=== PATIENT | female | born 1995 | race Caucasian/White ===

== ENCOUNTER 2018-11-15 23:14 | Emergency (ER) | payer OTHER ==
[~2018-11-15] VITALS: Ht 162.6 cm; Wt 61.4 kg
[2018-11-15] MEDS ORDERED: NEXI40CA PO (23:19)
[2018-11-15] MEDS ORDERED: CLINDAMYCIN 900 MG in APPROPRIATE DILUENT 1 EA IV ONE (23:45)
[2018-11-16 00:01] LABS: BASO # 0.1 10^3/uL (0.0-0.2); BASO % 0.4 % (0.0-1.0); EOS # 0.1 10^3/uL (0.0-0.50); EOS % 0.6 % (0.0-3.0); LYMPH # 1.1 10^3/uL (1.5-6.5); LYMPH % 7.9 % (24.0-44.0); MEAN CORPUSCULAR HEMOGLOBIN 28.5 pg (27.0-33.0); MEAN CORPUSCULAR HGB CONC 34.3 g/dl (32.0-36.5); MEAN CORPUSCULAR VOLUME 83.1 fl (80.0-96.0); MONO # 1.2 10^3/uL (0.0-0.8); MONO % 8.6 % (0.0-5.0); NEUTROPHILS # 11.6 10^3/uL (1.8-7.7); NEUTROPHILS % 81.9 % (36.0-66.0); PLATELET COUNT, AUTOMATED 244 10^3/uL (150-450); RED BLOOD COUNT 4.21 10^6/uL (4.00-5.40); WHITE BLOOD COUNT 14.1 10^3/uL (4.0-10.0)
--- NOTE | 2018-11-16 00:43 | REPVR ---
EXAM: US Pelvis Limited, Transabdominal EXAM DATE/TIME: 11/15/2018 12:07 AM CLINICAL HISTORY: 23 years old, female; Pain; Other: Left buttocks; Additional info: ? Left gluteal abscess--pain, redness, swelling TECHNIQUE: Real-time transabdominal pelvic ultrasound with image documentation. Limited exam. COMPARISON: No relevant prior studies available. FINDINGS: Scanning in the left gluteal region demonstrates a large hypoechoic area with scattered bright internal echoes suggesting gas bubbles and internal complexity and likely reflects abscess measuring 5.4 x 4.5 x 5.2 cm. IMPRESSION: Findings consistent with left buttocks subcutaneous abscess measuring approximately 5.4 x 4.5 x 5.2 cm. Electronically signed by: Yonathan Siu On 11/16/2018 00:42:58 AM
[2018-11-16 00:45] LABS: BLOOD UREA NITROGEN 10 MG/DL (7-18); CALCIUM LEVEL 8.7 MG/DL (8.5-10.1); CARBON DIOXIDE LEVEL 23 MEQ/L (21-32); CHLORIDE LEVEL 104 MEQ/L (98-107); CREATININE FOR GFR 0.84 MG/DL (0.55-1.30); GLOMERULAR FILTRATION RATE > 60.0 (>60); GLUCOSE, FASTING 161 MG/DL (70-100); POTASSIUM SERUM 3.5 MEQ/L (3.5-5.1); SODIUM LEVEL 137 MEQ/L (136-145)
[2018-11-16] MEDS ORDERED: LIDOCAINE 2% MDV 20 ML VIAL SC ONE (01:30)
[2018-11-16] MEDS ORDERED: CLEO300C2 PO (02:00)
[2018-11-16] MEDS ORDERED: NORCOTAB PO (02:00)
[2018-11-16 02:06] VITALS: BP 117/69
[2018-11-16] MEDS ORDERED: NORCO, ANEXSIA 5/325MG TABLET (HYDROcodone/ACETAMINOPHEN) PO ONE (02:15)
== END 2018-11-16 02:35 | disposition home or self-care (01) ==
LOC: M ED 23:14
DX: L02.31 Cutaneous abscess of buttock (principal); K21.9 Gastro-esophageal reflux disease without esophagitis; Z88.0 Allergy status to penicillin; Z88.2 Allergy status to sulfonamides; Z88.8 Allergy status to other drugs, medicaments and biological substances

== ENCOUNTER 2018-11-18 19:16 | Inpatient (IN) | payer OTHER ==
[~2018-11-18] VITALS: Ht 162.6 cm; Wt 61.4 kg
[2018-11-18] MEDS: LR 1,000 ML IV SCH (03:15)
[~2018-11-18 19:16] MED LIST: CLEO300C2 PO; NEXI40CA PO; NORCOTAB PO
[2018-11-18] MEDS ORDERED: cefTRIAXone SOD 1 GM in D5W MINI-BAG PLUS 50 ML IV ONE (20:00)
[2018-11-18] MEDS ORDERED: MORPHINE 4 MG/ML 1ML VIAL/SYRINGE (J2270) IV ONE (20:00)
[2018-11-18] MEDS ORDERED: KETOROLAC 30 MG/ML VIAL (J1885) IV ONE (20:00)
[2018-11-18] MEDS ORDERED: NS 1,000 ML IV ONE (20:00)
[2018-11-18] MEDS ORDERED: ISOVUE-370 76% 100ML VIAL (Q9967) As Ordered ONE (20:02)
[2018-11-18 20:05] LABS: BASO # 0.1 10^3/uL (0.0-0.2); BASO % 0.4 % (0.0-1.0); EOS % 0.1 % (0.0-3.0); HEMATOCRIT 36.1 % (36.0-47.0); HEMOGLOBIN 12.2 g/dl (12.0-15.5); LYMPH # 1.4 10^3/uL (1.5-6.5); LYMPH % 9.7 % (24.0-44.0); MEAN CORPUSCULAR HGB CONC 33.8 g/dl (32.0-36.5); MONO # 1.2 10^3/uL (0.0-0.8); MONO % 8.3 % (0.0-5.0); NEUTROPHILS # 11.5 10^3/uL (1.8-7.7); NEUTROPHILS % 80.4 % (36.0-66.0); PLATELET COUNT, AUTOMATED 279 10^3/uL (150-450); RED BLOOD COUNT 4.35 10^6/uL (4.00-5.40); WHITE BLOOD COUNT 14.3 10^3/uL (4.0-10.0)
[2018-11-18 20:23] LABS: ERYTHROCYTE SEDIMENTATION RATE 43 mm/hr (0-20)
--- NOTE | 2018-11-18 20:59 | REP ---
Clinical: Left gluteal abscess. Technique: Axial contrast enhanced images of the pelvis using 100 ml Isovue 370 intravenous contrast material with coronal and sagittal re-formations. Findings: A multiloculated left gluteal abscess with surrounding inflammatory changes to the subcutaneous fat measures approximately 5.2 x 5.8 x 8.7 cm and appears to extend medially through the perineum towards the left side of the vagina and labia (images 60-95). No obvious significant adenopathy appreciated although few mildly prominent left inguinal lymph nodes are identified and measure up to approximately 12 mm. The cervix/uterus and bilateral adnexa appear normal. The bladder is unremarkable. Visualized portions of the small and large bowel including terminal ileum and appendix appear normal. Vasculature without evidence for aneurysm or dissection. The osseous structures are intact and unaffected. Impression: Multiloculated abscess within the left gluteal region extending through the perineum to the left side of the vagina and labia measuring approximately 5.2 x 5.8 x 8.7 cm. Electronically Signed by Geoff Busby MD 11/18/2018 08:50 P
[2018-11-18 21:00] LABS: BLOOD UREA NITROGEN 6 MG/DL (7-18); CALCIUM LEVEL 8.3 MG/DL (8.5-10.1); CARBON DIOXIDE LEVEL 27 MEQ/L (21-32); CHLORIDE LEVEL 102 MEQ/L (98-107); CREATININE FOR GFR 0.88 MG/DL (0.55-1.30); GLOMERULAR FILTRATION RATE > 60.0 (>60); GLUCOSE, FASTING 173 MG/DL (70-100); POTASSIUM SERUM 3.4 MEQ/L (3.5-5.1); SODIUM LEVEL 138 MEQ/L (136-145)
[2018-11-18] MEDS ORDERED: NEXI40CA PO (21:35)
[2018-11-18] MEDS ORDERED: NORC1TAB4 PO (21:35)
[2018-11-18] MEDS ORDERED: PROBCAP14 PO (21:35)
[2018-11-18] MEDS ORDERED: VITMTA PO (21:35)
[2018-11-18] MEDS ORDERED: CLEO300C2 PO (21:35)
[2018-11-18] MEDS ORDERED: VITA200015 PO (21:35)
[2018-11-18] MEDS ORDERED: METOCLOPRAMIDE INJ 10MG/2ML VIAL (J2765) IV PRN (23:45)
[2018-11-18] MEDS ORDERED: MORPHINE 4 MG/ML 1ML VIAL/SYRINGE (J2270) IV PRN ×2 (23:45)
[2018-11-18] MEDS ORDERED: ONDANSETRON 4MG/2ML VIAL (J2405) IV PRN (23:45)
[2018-11-19] VITALS (10 sets, daily range): BP systolic 99–122; BP diastolic 50–69
[2018-11-19] MEDS ORDERED: LIDOCAINE 2% INJ 100 MG/5 ML SDV (FOR ANES.) As Ordered ONE (00:41)
[2018-11-19] MEDS ORDERED: PROPOFOL 200 MG/20 ML VIAL As Ordered ONE ×2 (00:41→01:42)
[2018-11-19] MEDS ORDERED: MIDAZOLAM INJ 2 MG/2 ML VIAL (J2250) As Ordered ONE (00:43)
[2018-11-19] MEDS ORDERED: fentaNYL 100 MCG/2 ML INJECTION (J3010) As Ordered ONE ×2 (00:44→01:38)
[2018-11-19 01:07] LABS: HCG, SERUM QUANTITATIVE < 1.0 MIU/ML
[2018-11-19] MEDS ORDERED: BUPIVACAINE HCL 0.5% 30 ML VIAL As Ordered ONE (01:13)
[2018-11-19] MEDS ORDERED: dexameTHASONE 4 MG/ML 1ML VIAL (J1100) As Ordered ONE (01:28)
[2018-11-19] MEDS ORDERED: ONDANSETRON 4MG/2ML VIAL (J2405) As Ordered ONE (01:28)
[2018-11-19] MEDS ORDERED: KETAMINE HCL 200 MG/20 ML VIAL As Ordered ONE (01:31)
[2018-11-19] MEDS ORDERED: PERCOCET 5MG/325MG TAB PO PRN (03:00)
[2018-11-19] MEDS ORDERED: LR 1,000 ML IV SCH (03:00)
[2018-11-19] MEDS ORDERED: fentaNYL 100 MCG/2 ML INJECTION (J3010) IV PRN (03:00)
[2018-11-19] MEDS ORDERED: ONDANSETRON 4MG/2ML VIAL (J2405) IV PRN (03:00)
[2018-11-19] MEDS: DOCUSATE SODIUM 100 MG CAP PO SCH ×2 (08:37→20:48)
[2018-11-19] MEDS ORDERED: PANTOPRAZOLE 40MG INJ (PROTONIX) (C9113) IV SCH (09:00)
[2018-11-19 11:09] LABS: BASO % 0.1 % (0.0-1.0); HEMATOCRIT 32.2 % (36.0-47.0); LYMPH # 0.6 10^3/uL (1.5-6.5); LYMPH % 4.1 % (24.0-44.0); MEAN CORPUSCULAR HEMOGLOBIN 28.2 pg (27.0-33.0); MEAN CORPUSCULAR HGB CONC 34.2 g/dl (32.0-36.5); MEAN CORPUSCULAR VOLUME 82.6 fl (80.0-96.0); MONO # 0.6 10^3/uL (0.0-0.8); MONO % 4.2 % (0.0-5.0); NEUTROPHILS # 12.8 10^3/uL (1.8-7.7); NEUTROPHILS % 90.8 % (36.0-66.0); PLATELET COUNT, AUTOMATED 251 10^3/uL (150-450); WHITE BLOOD COUNT 14.1 10^3/uL (4.0-10.0)
[2018-11-19 11:38] LABS: BLOOD UREA NITROGEN 6 MG/DL (7-18); CALCIUM LEVEL 8.6 MG/DL (8.5-10.1); CARBON DIOXIDE LEVEL 26 MEQ/L (21-32); CHLORIDE LEVEL 106 MEQ/L (98-107); CREATININE FOR GFR 0.67 MG/DL (0.55-1.30); GLOMERULAR FILTRATION RATE > 60.0 (>60); GLUCOSE, FASTING 129 MG/DL (70-100); POTASSIUM SERUM 4.4 MEQ/L (3.5-5.1); SODIUM LEVEL 140 MEQ/L (136-145)
[2018-11-19] MEDS: LR 1,000 ML IV SCH (11:39)
[2018-11-19] MEDS ORDERED: SLF 3 ML SYR IV PRN (13:15)
[2018-11-19] MEDS: KETOROLAC 30 MG/ML VIAL (J1885) IV PRN (15:09)
[2018-11-19] MEDS: SLF 3 ML SYR IV SCH ×2 (15:09→20:48)
[2018-11-19] MEDS: NORCO, ANEXSIA 5/325MG TABLET (HYDROcodone/ACETAMINOPHEN) PO PRN (15:10)
[2018-11-19] MEDS: ERTAPENEM SODIUM 1 GM in NS MINI-BAG PLUS 50 ML IV SCH ×3 (23:26)
[2018-11-20] VITALS: BP 98/52
[2018-11-20 04:00] VITALS: BP 103/54
--- NOTE | 2018-11-20 05:47 | IPN ---
DATE OF VISIT: 11/19/2018 HISTORY OF PRESENT ILLNESS: Early this morning the patient underwent an exploration and drainage of a very large ischiorectal abscess with extension into the buttock. She has four separate incision and drainage (I and D) wounds with Lupe drain threaded through adjacent openings to maintain patency. She has tolerated this well and is taking less pain medication then I might anticipate. VITAL SIGNS: She has been afebrile since the surgery. Her pulses in the 60s and her blood pressure is good. Room air oxygen saturation is normal. Intake and output shows that her urine output today has been 1300 mL. She is taking a diet well. PHYSICAL EXAMINATION: GENERAL: Limited to the perineum shows that the wounds are open with the Lupe intact. She is not having much in the way of drainage right at this time. The medial and inferior aspect of the buttock remains quite red and indurated. LABORATORY DATA: Laboratory studies show that the patient has a white count of 14 which is stable from preoperative. Her hemoglobin is 11 with a hematocrit of 32 and the platelet count is 251,000. Differential count shows 91% neutrophils, 4% lymphocytes and 4% monocytes. A chemistry profile this morning shows normal electrolytes with a glucose of 129. IMPRESSION: The patient is doing very well following her incision and drainage. She is having less pain than I would anticipate and she remains afebrile. Her white count remains slightly elevated. I note that her blood sugar this morning is still slightly elevated. PLAN: The patient will be started on four times daily soaks in the tub or showers and showers after every bowel movement. She will remain on the ertapenem for broad-spectrum antibiotic coverage for her extensive infection for now. I will monitor her wound daily. I am going to obtain a repeat CBC differential in the morning and also obtain a hemoglobin A1c given that her glucoses have so far always been elevated. AWILDA
[2018-11-20] MEDS: SLF 3 ML SYR IV SCH ×3 (06:00→21:06)
[2018-11-20 06:51] LABS: BASO % 0.3 % (0.0-1.0); EOS # 0.1 10^3/uL (0.0-0.50); EOS % 0.5 % (0.0-3.0); HEMATOCRIT 30.5 % (36.0-47.0); HEMOGLOBIN 10.2 g/dl (12.0-15.5); LYMPH # 2.3 10^3/uL (1.5-6.5); LYMPH % 24.3 % (24.0-44.0); MEAN CORPUSCULAR HEMOGLOBIN 28.4 pg (27.0-33.0); MEAN CORPUSCULAR HGB CONC 33.4 g/dl (32.0-36.5); MONO # 0.6 10^3/uL (0.0-0.8); MONO % 6.5 % (0.0-5.0); NEUTROPHILS # 6.2 10^3/uL (1.8-7.7); NEUTROPHILS % 66.9 % (36.0-66.0); PLATELET COUNT, AUTOMATED 217 10^3/uL (150-450); RED BLOOD COUNT 3.59 10^6/uL (4.00-5.40); WHITE BLOOD COUNT 9.3 10^3/uL (4.0-10.0)
[2018-11-20 07:06] LABS: HEMOGLOBIN A1c 5.2 %
--- NOTE | 2018-11-20 07:15 | RO ---
DATE OF PROCEDURE: 11/19/2018 PREOPERATIVE DIAGNOSIS: Extensive left sided perineal infection secondary to perirectal abscess. POSTOPERATIVE DIAGNOSIS: Extensive ischiorectal abscess. PROCEDURE PERFORMED: Exam under anesthesia with incision and debridement and drainage of extensive abscess of the ischiorectal space and buttocks. SURGEON: Dr. Rm Palm ANESTHESIA: Monitored anesthesia care with local anesthesia. 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 This progressed. On the , she was found to have an abscess in the medial left buttock adjacent to the rectum and a small incision and drainage was performed by the staff of the emergency department. She had some drainage of purulence and some temporary improvement but had progressive worsening of her infection. She returned on the and was found to have an extensive infection. A CT scan showed an extensive abscess which appeared to track along the left side of the rectum going anteriorly possibly across the posterior midline to the right and also extending extensively into the subcutaneous tissues of the buttock. She is now for exam under anesthesia with drainage and debridement. OPERATIVE PROCEDURE: The patient was brought to the operating room and received sedation from anesthesia. She was moved into a lithotomy position with her lower extremities in padded leg holders. The perineum was prepped and draped. Inspection revealed an extensive area of redness and induration at least 15 cm from anterior to posterior on the medial aspect of the buttock. The small previous incision and drainage site was about 6-7 cm lateral to the anal verge. A digital rectal examination revealed some presumed fluctuance along the left perirectal area. A suction catheter was inserted into the previous incision and drainage site with return of a large amount of thick yellow-brown pus. The suction device was used to probe the cavity and this was extensive extending up almost to the vagina, posteriorly to at least the midline and posterolaterally into the buttock at least another 8 cm. A radial incision was made beginning just lateral to the sphincter mechanism at the 3 o'clock position with 12 o'clock at the anterior aspect of the perineum. An approximately 2 cm incision was made and this was deepened into the abscess cavity. Hemostasis was ensured with the cautery. An examining finger was inserted and the abscess extended at least 10 cm up along the lateral aspect of the rectum just outside the sphincter mechanism. The abscess extended another perhaps 6 cm anteriorly and then posteriorly to at least the posterior midline of the perianal area. This also extended approximately 8-10 cm to the left and posterior into the subcutaneous tissues of the buttock. A second incision was made at the anterior most extent of the abscess at the roughly 1 o'clock position. Another incision was made at the 5 o'clock position relative to the anus at the posterior aspect of the abscess but this was placed slightly further laterally. With probing, it was clear that the abscess did extend just across the posterior midline and a fourth incision was made at approximately the 7 o'clock position to the right of the midline. These wounds were checked for hemostasis which was achieved with cautery. The wound in the subcutaneous tissues of the buttock was quite extensive. This area was packed temporarily to achieve hemostasis. I elected to use [place] drains to keep her wounds open for drainage. Quarter inch [place] drains were used. One was placed from the wound at the 1 o'clock position down to the 3 o'clock position and this was tied together externally as a loop. A second drain was placed from the 3 o'clock to 5 o'clock position and a third drain from the 5 o'clock to 7 o'clock position. The incisions were infiltrated with 0.25% Marcaine. Some moistened prep gauze was used to wick the wounds at the 1, 3, and 5-o'clock positions. A bulky bandage was applied. The patient tolerated the procedure well without apparent complication. She was awakened and transported to the recovery room in stable condition. AWILDA
[2018-11-20 08:00] VITALS: BP 111/68
[2018-11-20] MEDS: DOCUSATE SODIUM 100 MG CAP PO SCH ×2 (08:19→21:06)
[2018-11-20] MEDS: PANTOPRAZOLE 40MG TAB (PROTONIX) PO SCH (08:19)
[2018-11-20 12:00] VITALS: BP 126/67
[2018-11-20] MEDS: NORCO, ANEXSIA 5/325MG TABLET (HYDROcodone/ACETAMINOPHEN) PO PRN ×2 (12:52→21:07)
[2018-11-20 16:00] VITALS: BP 118/61
[2018-11-20 20:00] VITALS: BP 107/57
--- NOTE | 2018-11-20 23:59 | IPN ---
DATE: 11/20/2018 HISTORY: The patient is now postop day #1 from incision and drainage of an extensive ischiorectal and left buttock abscess. She remains on ertapenem for antibiotic coverage. She has several Lupe drains looped through her various incisions to keep her wounds open and draining. She was started on showers or soaks yesterday after her with gauze ryan were removed. She reports having some pain but has tried to resist taking any narcotic pain relievers. Vital signs reveal that she has been afebrile over the past 24 hours. Her pulse is in the 60s generally. Her blood pressure is good with normal room air oxygen saturation. Intake and output yesterday showed she had 4100 with 1700 out. Today we seem to have stopped measuring her urine output but her oral intake is good. PHYSICAL EXAMINATION: A limited exam of the operative area was performed today. The redness overlying her area of infection has diminished somewhat. She still has some serosanguineous drainage around her Lupe drains, and she remains extremely tender. Laboratory studies today shows a white blood cell count down to normal at 9.3 with a differential showing 67% neutrophils, 24% lymphocytes and 6% monocytes. Her hemoglobin is 10 with a hematocrit of 30. Chemistry profile showed a hemoglobin A1c today of 5.2 indicating an estimated mean plasma glucose of 103. This was done because each of her three blood sugar tests that have been done since she showed up at [facility] have been elevated. IMPRESSION: The patient is doing well at this point for just one day out from her surgery for an extensive infection. PLAN: The patient will be continued on the ertapenem for now. She is encouraged to soak or shower the wounds for 10-15 minutes three to four times per day to promote drainage and keep the wounds as clean as possible. I anticipate monitoring in the hospital for probably another 2-3 days before sending her home on some oral antibiotics. AWILDA
[2018-11-21] VITALS: BP 109/55
[2018-11-21] MEDS: ERTAPENEM SODIUM 1 GM in NS MINI-BAG PLUS 50 ML IV SCH ×2 (00:29→23:12)
[2018-11-21] MEDS: NORCO, ANEXSIA 5/325MG TABLET (HYDROcodone/ACETAMINOPHEN) PO PRN ×2 (00:39→18:30)
[2018-11-21] MEDS: SLF 3 ML SYR IV SCH ×3 (05:51→22:00)
[2018-11-21 08:00] VITALS: BP 119/81
[2018-11-21] MEDS: PANTOPRAZOLE 40MG TAB (PROTONIX) PO SCH (08:56)
[2018-11-21] MEDS: DOCUSATE SODIUM 100 MG CAP PO SCH ×2 (08:56→23:12)
[2018-11-21] MEDS: ACETAMINOPHEN TAB 650MG DOSE (2X325MG) PO PRN ×2 (10:04→15:54)
[2018-11-21 12:10] VITALS: BP 145/83
[2018-11-21 16:20] VITALS: BP 107/57
[2018-11-21 20:00] VITALS: BP 115/71
[2018-11-22] VITALS: BP 124/75
[2018-11-22 04:00] VITALS: BP 118/72
[2018-11-22] MEDS: SLF 3 ML SYR IV SCH ×3 (06:00→22:00)
[2018-11-22 08:00] VITALS: BP 130/78
[2018-11-22] MEDS: PANTOPRAZOLE 40MG TAB (PROTONIX) PO SCH (08:16)
[2018-11-22] MEDS: DOCUSATE SODIUM 100 MG CAP PO SCH ×2 (08:16→22:59)
[2018-11-22] MEDS: KETOROLAC 30 MG/ML VIAL (J1885) IV PRN (10:52)
[2018-11-22 12:00] VITALS: BP 137/72
[2018-11-22 14:05] LABS: BASO % 0.6 % (0.0-1.0); EOS # 0.1 10^3/uL (0.0-0.50); EOS % 1.7 % (0.0-3.0); HEMATOCRIT 32.7 % (36.0-47.0); HEMOGLOBIN 10.9 g/dl (12.0-15.5); LYMPH # 1.8 10^3/uL (1.5-6.5); LYMPH % 27.2 % (24.0-44.0); MEAN CORPUSCULAR HEMOGLOBIN 27.9 pg (27.0-33.0); MEAN CORPUSCULAR HGB CONC 33.3 g/dl (32.0-36.5); MEAN CORPUSCULAR VOLUME 83.6 fl (80.0-96.0); MONO # 0.4 10^3/uL (0.0-0.8); MONO % 6.5 % (0.0-5.0); NEUTROPHILS # 4.1 10^3/uL (1.8-7.7); NEUTROPHILS % 61.6 % (36.0-66.0); PLATELET COUNT, AUTOMATED 287 10^3/uL (150-450); RED BLOOD COUNT 3.91 10^6/uL (4.00-5.40); WHITE BLOOD COUNT 6.7 10^3/uL (4.0-10.0)
[2018-11-22 14:31] LABS: BLOOD UREA NITROGEN 9 MG/DL (7-18); CALCIUM LEVEL 8.5 MG/DL (8.5-10.1); CARBON DIOXIDE LEVEL 31 MEQ/L (21-32); CHLORIDE LEVEL 106 MEQ/L (98-107); CREATININE FOR GFR 0.75 MG/DL (0.55-1.30); GLOMERULAR FILTRATION RATE > 60.0 (>60); GLUCOSE, FASTING 90 MG/DL (70-100); POTASSIUM SERUM 4.3 MEQ/L (3.5-5.1); SODIUM LEVEL 142 MEQ/L (136-145)
[2018-11-22 16:00] VITALS: BP 129/59
[2018-11-22] MEDS: metroNIDAZOLE (FLAGYL) 500 MG TAB PO SCH ×2 (16:27→22:59)
--- NOTE | 2018-11-22 17:12 | IPN ---
DATE: 11/21/2018 HISTORY: The patient is now two days postoperative from incision and drainage of an extensive ischiorectal and buttock abscess. She has been doing some showers. Her mother is in visiting from [place] today. She reports perhaps slightly less discomfort. She still notes some drainage around her Lupe drains. Vital signs show that she has been afebrile over the past 24 hours. Her pulse is in the 60s and 70s generally. She has a good blood pressure and normal pulse oximetry. Intake and output shows that yesterday she only had 770 recorded in with 450 recorded out and I suspect we are under-recording her intake and output both. PHYSICAL EXAMINATION: The patient is lying quietly in the hospital bed. She is alert and appears comfortable. LABORATORY STUDIES: The patient has no new laboratories today. IMPRESSION: The patient is generally doing well. She has remained afebrile. She is having a little less pain and notes a little less drainage. PLAN: The patient and her mother and I discussed the expectations for healing. I advised them that I would expect to leave the drains in place probably for a week overall. I would expect her to be fairly sore for the first two weeks or so and she might then be able to increase her activity, though I expect she will not be healed for a month or even six weeks. I will plan on doing a more thorough examination of her wounds in the morning. AWILDA
--- NOTE | 2018-11-22 17:16 | IPN ---
DATE: 11/22/2018 HISTORY The patient is now postop day #3 from drainage of her extensive abscess. She appears more perky and comfortable today. She reports that she has been up doing some walking. She is taking a diet well. She reports that she had two bowel movements today. These are the first since her surgery. Vital signs: Show that she has been afebrile over the past 24 hours and the vitals are otherwise stable. Intake and output shows that her intake and output was balanced yesterday. PHYSICAL EXAMINATION The patient's operative area was inspected with a nurse director post. The redness and induration of the buttock has diminished quite a bit, though there is still a little discoloration in the area that is widely undermined by the abscess. Her wounds are nicely open with a small amount of drainage around her Penroses. Laboratory studies show that today she had a CBC showing a white count of 7, hemoglobin 11, hematocrit 33 and a platelet count of 287,000. Her differential count showed 62% neutrophils, 27% lymphocytes and 6% monocytes. Chemistry profile was normal. IMPRESSION Patient is now beginning to make more rapid progress with improvement. She has much less tenderness on exam and her drainage has diminished. She remains afebrile with a normal white blood cell count and differential. PLAN The patient's ertapenem will be stopped. I will put her on some Cipro and Flagyl starting in the morning of November 23. She will continue her showers or soaks to the wound 3 or 4 times per day. I believe she will probably be ready for discharge tomorrow November 23. I would anticipate seeing her back in the office early next week to remove her Lupe drains and then to monitor her as an outpatient after this. AWILDA
[2018-11-22] MEDS: CIPROFLOXACIN 500 MG TAB PO SCH (17:43)
[2018-11-22] MEDS: IBUPROFEN 800 MG TAB PO PRN (18:55)
[2018-11-22 20:00] VITALS: BP 113/67
[2018-11-23] VITALS: BP 127/64
[2018-11-23 06:00] VITALS: BP 107/64
[2018-11-23] MEDS: SLF 3 ML SYR IV SCH (06:00)
[2018-11-23] MEDS: metroNIDAZOLE (FLAGYL) 500 MG TAB PO SCH ×2 (06:36→13:42)
[2018-11-23] MEDS: CIPROFLOXACIN 500 MG TAB PO SCH (06:36)
[2018-11-23] MEDS: IBUPROFEN 800 MG TAB PO PRN (06:45)
[2018-11-23 08:00] VITALS: BP 109/69
[2018-11-23] MEDS: DOCUSATE SODIUM 100 MG CAP PO SCH (08:31)
[2018-11-23] MEDS ORDERED: FLAG500T PO ×2 (11:10→14:31)
[2018-11-23] MEDS ORDERED: CIPR-249 PO ×2 (11:10→14:31)
[2018-11-23] MEDS ORDERED: IBUP80TA PO ×2 (11:10→14:31)
[2018-11-23] MEDS ORDERED: NORCOTAB PO ×2 (11:10→14:31)
--- NOTE | 2018-12-26 07:39 | DSES ---
DATE OF ADMISSION: 11/18/2018 DATE OF DISCHARGE: 11/23/2018 ADMITTING DIAGNOSIS: Extensive perirectal abscess. 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 She had presented at the emergency department on November 15 and had a limited incision and drainage under local anesthesia in the emergency department. There was reportedly some drainage of pus. She was started on some oral antibiotics. She returned on the with persistent and worsening pain interfering with normal ambulation. She had noticed a feeling of fever. In the emergency department, she was found to have extensive areas of redness, particularly involving the superior aspect of the left buttock and the perianal area on the left. A CT scan had been done in the emergency department that was interpreted as showing a multiloculated abscess within the left gluteal region extending through the perineum to the left side of the vagina and labia. I was consulted. Her clinical presentation was felt to be most consistent with a perirectal abscess extending into the buttock and perivaginal areas. She was admitted for exploration and debridement in the operating room. HOSPITAL COURSE: The patient was brought to the operating room on the multilith operator of 11/19/2018. She was placed under monitored anesthesia with heavy sedation. Examination confirmed a large abscess. The ischiorectal area extending from the perirectal area into the left medial and posterior buttock and up along the perineum along the left side of the vagina. Four separate drainage incisions were made to allow drainage of this extensive abscess. Loculations were broken open. Lupe drains were then passed through the various incisions and looped and tied together to keep the wounds open for better drainage. She was treated with intravenous antibiotics with ertapenem. She was started on warm soaks and showers after her drainage had been completed. She had persistent drainage during her hospital stay. Her white blood cell count had been elevated to 14.3 at the time of admission and fell over the ensuing several days so that on November 22, her white count was down to normal at 6.7 with 62% neutrophils and 27% lymphocytes. Chemistries showed a significant elevation of the CRP to 26 on November 18 but there were no other significant electrolyte abnormalities noted. She was found to have some elevation of her glucose at the time of admission to 173 and but this returned to normal also as her infection responded to treatment. She did have a hemoglobin A1c tested on November 20 that was only 5.2. On November 22, her ertapenem was stopped and she was converted to oral ciprofloxacin and Flagyl to start on November 23. Plans were made for her discharge on the . She continued to do well and was discharged home on 11/23/2018. FINAL DIAGNOSES. 1. Large left ischiorectal abscess with extension into the left buttock and anteriorly through the peritoneum along the left perivaginal area. 2. Gastroesophageal reflux. PROCEDURE PERFORMED: Exam under anesthesia with incision and debridement and drainage of extensive abscess of the ischial rectal space and buttocks. DISPOSITION: She was discharged home on 11/23/2018. She was provided prescriptions for ciprofloxacin and Flagyl each for 5 days. She was provided a prescription for ibuprofen 800 mg by mouth every 8 hours as needed for moderate pain and another prescription for Schuyler 5/325 tablets one every 6 hours as needed for moderate to severe pain. She was to continue her vitamin D, Nexium, multivitamin and probiotic as she had been taking before. She was to stop the clindamycin she had previously been prescribed. She was advised against any strenuous activity. She was to continue to shower or soak the perineum for 15 minutes at least three to four times per day and after bowel movements. She was to call my office for any problems. She was to follow up with me in the office on MondayNovember 26. She could take a regular diet. She was to call with any issues.
== END 2018-11-23 16:54 | disposition home or self-care (01) | DRG 330 ==
LOC: M ED 19:16 → M ED INP 23:40 → M PED 11-19 03:00
PROVIDERS: ADMIT Surgery; ATTEND Surgery
PROC: 0D9P00Z Drainage of Rectum with Drainage Device, Open Approach (ICD-10-PCS; principal; 2018-11-19 00:30)
DX: K61.1 Rectal abscess (principal); L03.317 Cellulitis of buttock; L03.315 Cellulitis of perineum; K21.9 Gastro-esophageal reflux disease without esophagitis

== ENCOUNTER 2019-03-19 07:50 | Day surgery (SDC) | payer OTHER ==
[~2019-03-19] VITALS: Ht 162.6 cm; Wt 63.5 kg
[~2019-03-19 07:50] MED LIST changes: +CIPR-249 PO; +FLAG500T PO; +HYDR-3715 PO; +IBUP80TA PO; +LR 1,000 ML IV ONE; +NORC1TAB7 PO; -NORCOTAB PO; +PROBCAP14 PO; +VITA200015 PO; +VITMTA PO
[2019-03-19] MEDS ORDERED: BUPIVACAINE LIPOSOME/PF 1.3% 20ML VIAL (13.3MG/ML)(EXPAREL)(C9290 PER1MG) As Ordered ONE (08:18)
[2019-03-19] MEDS ORDERED: BUPIVACAINE HCL 0.5% 30 ML VIAL As Ordered ONE (08:18)
[2019-03-19 08:31] LABS: URINE PREG TEST NEGATIVE (NEGATIVE)
[2019-03-19] MEDS ORDERED: DOCUSATE SODIUM 100 MG CAP PO SCH (09:00)
[2019-03-19] MEDS ORDERED: fentaNYL 100 MCG/2 ML INJECTION (J3010) As Ordered ONE (10:15)
[2019-03-19] MEDS ORDERED: MIDAZOLAM INJ 2 MG/2 ML VIAL (J2250) As Ordered ONE (10:15)
[2019-03-19] MEDS ORDERED: ONDANSETRON 4MG/2ML VIAL (J2405) As Ordered ONE (10:32)
[2019-03-19] MEDS ORDERED: PERCOCET 5MG/325MG TAB As Ordered ONE (10:32)
[2019-03-19] MEDS ORDERED: HYDROMORPHONE HCL 0.5 MG/ 0.5 ML SYRINGE (J1170 PER 1) IV PRN (10:45)
[2019-03-19] MEDS ORDERED: PERCOCET 5MG/325MG TAB PO PRN (10:45)
[2019-03-19] MEDS ORDERED: ONDANSETRON 4MG/2ML VIAL (J2405) IV PRN (10:45)
[2019-03-19] MEDS ORDERED: LR 1,000 ML IV SCH (10:45)
[2019-03-19] MEDS ORDERED: ACETAMINOPHEN TAB 650MG DOSE (2X325MG) PO PRN (10:45)
[2019-03-19] MEDS ORDERED: fentaNYL 100 MCG/2 ML INJECTION (J3010) IV PRN (10:45)
[2019-03-19] MEDS ORDERED: NORCO, ANEXSIA 5/325MG TABLET (HYDROcodone/ACETAMINOPHEN) PO PRN (10:45)
[2019-03-19 12:35] VITALS: BP 113/62
--- NOTE | 2019-03-20 08:00 | RO ---
DATE OF PROCEDURE: 03/19/2019 PREOPERATIVE DIAGNOSIS: [id number]. POSTOPERATIVE DIAGNOSES 1. Chronic perianal abscess with fistula. 2. Chronic anterior anal fissure. PROCEDURE PERFORMED: 1. Incision of fistula (fistulotomy) and drainage of chronic abscess. 2. Debridement of chronic anal fissure with internal sphincterotomy. SURGEON: Dr. Palm SUPERVISOR MACHINE WORKERS: ANESTHESIA: Spinal. INDICATIONS FOR PROCEDURE: Patient is a 23-year-old woman who 4 months ago had been treated for a large perirectal abscess. She has developed recurring drainage through a left anterior perianal drainage incision and is now for a fistulotomy. OPERATIVE PROCEDURE: The patient was brought to the operating room. A subarachnoid block anesthetic was placed. The patient was rolled into a prone jackknife position with her pressure points padded. The perineum was prepped and draped in a sterile fashion. Initial inspection revealed no acute inflammatory changes. A digital rectal examination revealed no palpable mucosal abnormalities. The site of her recurrent drainage was identified in a left anterior position. A probe was inserted and this would track approximately 4 cm posteriorly along the lateral aspect of the anal verge. The probe appeared to extend to an area just deep to a second incision and drainage site on the left-hand side at about the 9 o'clock position with 12 o'clock at the posterior midline. A [place] anal speculum was inserted into the anus and attempts were made to identify any sort of internal opening to a fistula and there were no openings identified. She was noted to have a small anterior chronic anal fissure right at the anal verge and extending perhaps 6-8 mm internally. She had a small area of the internal sphincter muscle exposed and the base of the fissure. Initially the cautery was used to incise the opening of the fistula extending along the probe. There was clearly a well-formed tract present. With the probe inserted to the area of the 9 o'clock position, a second incision was made with the cautery over the tip of the probe in this area and the cautery entered another chronic pocket of granulation material. I then extended the fistulotomy, extending from the tip of the probe back to the insertion site opening the entire tract. There was a very well-formed tract filled with granulation tissue. At the 9 o'clock position, the patient was found to have a chronic abscess which extended about 3 cm deep from the skin surface. This had a smooth lining of chronic scar with some contained granulation. The granulation tissue was all removed using a curette. Portions of the skin along both sides of the fistulotomy were excised to include some of the underlying subcutaneous fatty tissue to ensure that the wound would remain nicely opened during healing. Effectively, the entire fistula tract and chronic abscess were unroofed. Hemostasis was ensured with the cautery. I elected to excise some hypertrophied tissue at the distal end of the anterior midline anal fissure. A limited internal sphincterotomy was then also performed using the cautery dividing the muscle fibers in the base of the fissure. After ensuring hemostasis, a mixture of 20 mL of Exparel and 20 mL of 0.5% Marcaine were infiltrated widely around the area of the fistulotomy and debridement the abscess and also in the area of the fissure. The patient tolerated the procedure well. The fistulotomy site and chronic abscess were filled with some saline moistened gauze and a bulky bandage was applied. The patient tolerated the procedure well without apparent complication. She was returned to a supine position on the stretcher and moved to the recovery room in stable condition.
== END 2019-03-19 13:24 | disposition home or self-care (01) ==
LOC: M SDC 07:50
PROVIDERS: ATTEND Surgery
DX: K60.5 Anorectal fistula (principal); K21.9 Gastro-esophageal reflux disease without esophagitis; Z88.0 Allergy status to penicillin; Z88.2 Allergy status to sulfonamides
CPT/HCPCS: 46275; 84703; 88304; C9290; J2250; J2405; J3010

== ENCOUNTER → 2019-08-22 | Outpatient (CLI) | payer OTHER ==
[~2019-08-22] MED LIST changes: -LR 1,000 ML IV ONE
--- NOTE | 2019-08-22 12:20 | REP ---
Clinical: Pelvic pain . Technique: Transvaginal examination for better evaluation of the endometrium and adnexa with color Doppler evaluation of the ovaries. Findings: Bladder is collapsed Normal anteverted uterus measures 6.3 x 3.3 x 4.1 cm . The endometrial complex measures 6.9 mm thickness. No discrete uterine or endometrial abnormalities are appreciated. Bilateral ovaries are normal in appearance and vascularity without evidence for torsion. Right ovary measures 3.8 x 2.7 x 3.2 cm with 2.2 cm dominant follicle ; R I = 0.49 . Left ovary measures 2.1 x 1.2 x 2.1 cm ; R I = 0.64 . No pelvic fluid or adnexal abnormality . Impression: 1. Normal pelvic ultrasound Electronically Signed by Geoff Busby MD 08/22/2019 12:11 P
== END ==
LOC: M RAD 11:09
DX: R10.30 Lower abdominal pain, unspecified (principal)